=== PATIENT | male | born 1975 | race Caucasian/White ===

== ENCOUNTER 2024-01-02 11:53 | Emergency (ER) | payer BC, SELFPAY ==
[2024-01-02 11:58] VITALS: BP 150/120; PULSE 80; RESP 200; TEMP 36.7; O2SAT 98; BMI 26.7
--- NOTE | 2024-01-02 12:30 | CRLHL7_ITS ---
For Patients: As a result of the Century Cures Act, medical imaging exams and procedure reports are released immediately into your electronic medical record. You may view this report before your referring provider. If you have questions, please contact your health care provider. INDICATION: Pain, diarrhea, lower abdominal pain for 1 week. COMPARISON: Renal ultrasound 01/02/2015 TECHNIQUE: CT of the abdomen and pelvis with intravenous contrast. Multiplanar axial, coronal, and sagittal reformats were reconstructed. Contrast: 89 mL Isovue 370. FINDINGS: Lung bases: Normal. Liver: Normal. No mass. Gallbladder and bile ducts: Normal gallbladder. No bile duct dilation. Pancreas: Normal. Spleen: Normal. Adrenal glands: Normal. Kidneys: Horseshoe kidney. No parenchymal scarring or volume loss. No cyst or solid mass. No calculi. No urinary tract dilation. Urinary bladder: Barely filled but appears to have a thick and mildly irregular wall. Pelvis: No cyst or mass. Vessels: Normal. Bowel: There may be some very minimal wall thickening scattered throughout the colon. No adjacent inflammation. No pneumatosis. No mesenteric or portal venous gas. No abscess. No free air. Normal appendix. Mild stool burden. Lymph nodes: No adenopathy. Peritoneum: No ascites. Abdominal wall: No hernia. Bones: No fractures. No focal worrisome bone lesions. IMPRESSION: 1. Appearance of the urinary bladder is consistent with cystitis. 2. Very minimal colitis. No findings specific to inflammatory bowel disease. No ischemia. 3. Incidentally noted horseshoe kidney without complication. Please note that all CT scans at this facility use dose modulation, iterative reconstruction, and/or weight-based dosing when appropriate to reduce radiation dose to as low as reasonably achievable. Dictated by Janee Goodwin MD @ 01/02/2024 1:43:24 PM (Electronically Signed)
--- NOTE | 2024-01-02 12:32 | ED_ITS ---
HPI - Abdominal Pain General Chief Complaint: Abdominal Pain Stated Complaint: Stomach pains, SOB Time Seen by Provider: 01/02/24 12:10 History of Present Illness HPI narrative: This 48-year-old male comes in reporting abdominal pain with diarrhea. He states that he has had diarrhea for more than a year. He did have an upper endoscopy about a year and half ago that did show some ulcers. He states that he has had diarrhea on and off over the past urine half for so but this has beco me much more frequent with lower abdominal pain. He states that he has lost 10 or 15 lb in the last week or 2. He states that his diarrhea seems to come rather suddenly where he feels he needs to be near a restroom almost always. He does not report any fevers. He has not had any vomiting. He arrives here with normal vital signs. This patient states that he has been chewing tobacco since age 14 and knows that this is not good for his GI tract and his general health. Related Data Home Medications ?Medication ?Instructions ?Recorded ?Confirmed omeprazole 40 mg capsule,delayed 40 mg PO BID 01/02/24 01/02/24 release Previous Rx's ?Medication ?Instructions ?Recorded diphenoxylate-atropine 2.5 1 tab PO DAILY #15 tabs 01/02/24 mg-0.025 mg tablet (Lomotil) pantoprazole 20 mg tablet,delayed 40 mg (2 x 20 mg) PO DAILY #30 tabs 01/02/24 release (Protonix) Allergies Allergy/AdvReac Type Severity Reaction Status Date / Time No Known Drug Allergies Allergy Verified 01/02/24 11:57 Review of Systems Status of ROS Reports: 10 or more systems reviewed and unremarkable except as noted in History and below Narrative Constitutional: No fevers, no weight gain or loss. Eyes: No discharge. No vision changes. HENT: No congestion, no sore throat, no ear pain. Cardiovascular: No chest pain, no palpitations. Respiratory: No shortness of breath, no wheezes, no cough. Gastrointestinal: Abdominal pain and diarrhea as described above. Genitourinary: No dysuria, no hematuria. Musculoskeletal: Normal range of motion. Skin: No rashes, no pruritis. Neurological: No dizziness, weakness, sensory change, speech change. Endo/Heme/Allergies: No bruising or bleeding. No polydipsia. Pysch: no suicidality, no anxiety, no insomnia. All other systems reviewed and are negative. PFSH PFSH Social History Smoking Status: Never smoker Do you use any of these nicotine containing products: None How often do you have a drink containing alcohol: never How often do you have six or more drinks on one occasion: Never AUDIT-C Alcohol total score: 0 Non-prescribed substance use: denies use Exam Narrative: Exam Narrative: Constitutional: Well-developed, well-nourished, no acute distress. HEENT: Normocephalic, atraumatic. Neck: Normal range of motion. Nontender. Supple. Heart: Regular. No murmurs. Normal rate. Intact distal pulses. Lungs: Clear to auscultation. No chest discomfort. No wheezes, rhonchi, or rales. Abdomen: Normal bowel sounds. Diffuse tenderness in the lower abdomen. No rebound tenderness. Genitalia: Deferred. Back: No midline tenderness. Normal range of motion. Extremities: Normal range of motion. No injury. Skin: Intact. No rash. Warm. No erythema or pallor. Neurologic: No altered sensation. No weakness. Alert and oriented. Psychiatric: No suicidality. No anxiety or depression. No insomnia. Nursing notes and vitals signs are reviewed. Const: Vital Signs, click to edit/add: Vital Signs - 24 hr 01/02/24 11:58 01/02/24 14:15 Temperature 98.1 F Pulse Rate [Pulse Oximeter] 80 71 Respiratory Rate 200 H 18 Blood Pressure [Ri ght Upper Arm] 150/120 H 150/105 H Pulse Oximetry 98 98 Oxygen Delivery Me thod Room Air Room Air Course Vital Signs Vital signs: Initial Vital Signs Temperature 98.1 F 01/02/24 11:58 Temperature Source Temporal Artery Scan 01/02/24 11:58 Pulse Rate 80 01/02/24 11:58 Pulse Rhythm Regular 01/02/24 11:58 Respiratory Rate 200 H 01/02/24 11:58 Blood Pressure 150/120 H 01/02/24 11:58 Blood Pressure Mean 130 H 01/02/24 11:58 Blood Pressure Position Sitting 01/02/24 11:58 Pulse Oximetry 98 01/02/24 11:58 Oxygen Delivery Method Room Air 01/02/24 11:58 Vital Signs Temperature 98.1 F 01/02/24 11:58 Pulse Rate 80 01/02/24 11:58 Respiratory Rate 200 H 01/02/24 11:58 Blood Pressure 150/120 H 01/02/24 11:58 Pulse Oximetry 98 01/02/24 11:58 Oxygen Delivery Method Room Air 01/02/24 11:58 Temperature 98.1 F 01/02/24 11:58 Pulse Rate 71 01/02/24 14:15 Respiratory Rate 18 01/02/24 14:15 Blood Pressure 150/105 H 01/02/24 14:15 Pulse Oximetry 98 01/02/24 14:15 Oxygen Delivery Method Room Air 01/02/24 14:15 MDM - Abdominal Pain MDM Narrative Medical decision making narrative: This patient comes in reporting crampy abdominal pain and diarrhea. He arrives with normal vital signs. He states that he had a colonoscopy about 4 5 years ago with normal results and he had an upper GI scope about 18 months ago that did show evidence of some ulcerations. He is not currently taking a proton pump inhibitor. He does state that he is continuing to chew tobacco but plans to quit. An IV was established and labs are acquired. Labs returned with normal findings throughout. Additionally his urinalysis is normal. CT scan of the abdomen and pelvis also shows no findings to explain the patient's symptoms. He is okay to be discharged home. I advised him to follow up with the primary physician. He may eventually benefit from a senior bi developer. I did provide prescription for Protonix and some tablets of Lomotil. I encouraged him to use Imodium preferably for management of diarrhea. Lab Data Labs: Lab Results 01/02/24 01/02/24 Range/Units 12:40 14:41 WBC 7.22 (4.50-11.00) K/uL RBC 5.23 (4.30-5.90) m/uL Hgb 16.3 (13.5-17.5) gm/dL Hct 49.5 (37.0-53.0) % MCV 95 (80-100) fL MCH 31 (26-34) pg MCHC 33 (32-36) gm/dL RDW Coeff of Jeronimo 12.0 (11.5-15.5) % Plt Count 303 (140-440) K/uL Neut % (Auto) 62.1 (42.0-72.0) % Lymph % (Auto) 25.1 (20-44) % [place] % (Auto) 9.7 (0.0-11.0) % Eos % (Auto) 2.4 (0.0-7.0) % Baso % (Auto) 0.6 (0.0-3.0) % Neut # (Auto) 4.49 (1.7-7.0) K/uL Lymph # (Auto) 1.81 (0.90-2.90) K/uL [place] # (Auto) 0.70 (0.00-0.90) K/UL Eos # (Auto) 0.17 (0.00-0.50) K/uL Baso # (Auto) 0.04 (0.00-0.30) K/uL Abs Immat Gran (auto) 0.01 (0.00-0.30) K/uL Imm/Tot Granulo (auto) 0.1 % ESR 2 (2-15) mm/hr Sodium 137 (135-149) mmol/L Potassium 4.2 (3.6-5.1) mmol/L Chloride 103 (96-114) mmol/L Carbon Dioxide 28 (20-32) mmol/L Anion Gap 6 L (7-15) mEq/L BUN 14 (5-24) mg/dL Creatinine 0.9 (0.5-1.5) mg/dL Estimated Creat Clear 101.47 Estimated GFR 106 ml/min Glucose 99 (60-115) mg/dL Calcium 9.6 (8.4-10.6) mg/dL TSH 3.490 (0.270-4.20) uIU/mL Urine Color Yellow (Yellow) Urine Appearance Clear (Clear) Urine pH 7.5 (5.0-8.5) Ur Specific [place] 1.015 (1.000-1.030) Urine Protein Negative (Negative) Urine Glucose (UA) Negative (Negative) Urine Ketones Negative (Negative) Urine Blood Negative (Negative) Urine Nitrite Negative (Negative) Urine Bilirubin Negative (Negative) Urine Urobilinogen 0.2 (0.2-1.0) Ur Leukocyte Esterase Negative (Negative) Urine RBC 0-2 (0-2) Urine WBC 0-2 (0-5) Ur Squamous Epith Cells None (None-Few) Urine Bacteria None (None) Discharge Plan Discharge Clinical Impression: Diarrhea Patient Disposition: Home, Self-Care Condition: Stable Additional Instructions: Take medications as prescribed and needed. Follow-up with primary physician. Consider following up with Dr. Tao Feldman. Call [phone] for appointment. Return if worsening. Prescriptions: New diphenoxylate-atropine [Lomotil] 2.5-0.025 mg tablet 1 tab PO DAILY Qty: 15 0RF pantoprazole [Protonix] 20 mg tablet,delayed release (DR/EC) 40 mg PO DAILY Qty: 30 2RF No Action omeprazole 40 mg capsule,delayed release(DR/EC) 40 mg PO BID Follow Up/Referrals: Rodolfo Goldberg MD [Referring] - Stand Alone Forms: [employer] Info Instructions
[2024-01-02 12:56] LABS: Basophils Absolute Auto 0.04 K/uL (0.00-0.30); Basophils Percent Auto 0.6 % (0.0-3.0); Eosinophils Absolute Auto 0.17 K/uL (0.00-0.50); Eosinophils Percent Auto 2.4 % (0.0-7.0); Hematocrit 49.5 % (37.0-53.0); Hemoglobin* 16.3 gm/dL (13.5-17.5); Immature Granulocytes Abs Auto 0.01 K/uL (0.00-0.30); Immature Granulocytes Pct Auto 0.1 %; Lymphocytes Absolute Auto 1.81 K/uL (0.90-2.90); Lymphocytes Percent Auto 25.1 % (20-44); Mean Corpuscular HGB Conc 33 gm/dL (32-36); Mean Corpuscular Hemoglobin 31 pg (26-34); Mean Corpuscular Volume 95 fL (80-100); Monocytes Percent Auto 9.7 % (0.0-11.0); Neutrophils Absolute Auto 4.49 K/uL (1.7-7.0); Neutrophils Percent Auto 62.1 % (42.0-72.0); Platelet Count* 303 K/uL (140-440); Red Blood Count 5.23 m/uL (4.30-5.90); Slide Review Reflex No; White Blood Count* 7.22 K/uL (4.50-11.00)
[2024-01-02 13:07] LABS: Chloride* 103 mmol/L (96-114); Potassium* 4.2 mmol/L (3.6-5.1); Sodium* 137 mmol/L (135-149)
[2024-01-02 13:10] LABS: Anion Gap 6 mEq/L (7-15); Blood Urea Nitrogen* 14 mg/dL (5-24); Carbon Dioxide* 28 mmol/L (20-32); Creatinine* 0.9 mg/dL (0.5-1.5); Est. Creatinine Clearance* 101.47; Estimated Glomerular Filt Rate 106 ml/min
[2024-01-02 13:11] LABS: Calcium* 9.6 mg/dL (8.4-10.6); Glucose* 99 mg/dL (60-115)
[2024-01-02 13:46] LABS: Erythrocyte SedimentationRate* 2 mm/hr (2-15)
[2024-01-02 14:15] VITALS: BP 150/105; PULSE 71; RESP 18; O2SAT 98
[2024-01-02 14:46] LABS: Appearance Urine Clear (Clear); Bilirubin Urine Negative (Negative); Blood Urine Negative (Negative); Color Urine Yellow (Yellow); Glucose Urine Negative (Negative); Ketones Urine Negative (Negative); Leukocyte Esterase Urine Negative (Negative); Nitrite Urine Negative (Negative); Protein Urine Negative (Negative); Specific Gravity Urine 1.015 (1.000-1.030); Urobilinogen Urine 0.2 (0.2-1.0); pH Urine 7.5 (5.0-8.5)
[2024-01-02 14:59] LABS: RBC Urine 0-2 (0-2); WBC Urine 0-2 (0-5)
== END 2024-01-02 16:10 | disposition home or self-care (01) ==
PROVIDERS: Emergency Provider Emergency Medicine Emergency Medical Services
DX: R19.7 Diarrhea, unspecified (principal)
CPT/HCPCS: 36415; 74177; 80048; 81001; 84443; 85025; 85651; 99284; 99285; Q9967

== ENCOUNTER 2024-06-17 16:02 | Emergency (ER) | payer BC, SELFPAY ==
[2024-06-17] VITALS (11 sets, daily range): BP systolic 115–142; BP diastolic 92–106; PULSE 77–126; RESP 16–20; TEMP 37.1; O2SAT 92–99; BMI 25.8
--- NOTE | 2024-06-17 16:54 | ED_ITS ---
HPI - General Adult General Date Seen: 06/17/24 Chief complaint: Alcohol/Intoxication Stated complaint: abdominal pain, SOB Time Seen by Provider: 06/17/24 16:09 Source: patient Mode of arrival: ambulatory Limitations: no limitations History of Present Illness HPI narrative: Patient is a 48-year-old male presenting to emergency department for shortness of breath and upper abdominal pain. Having going on for the past week. States the upper abdominal pain has been intermittent for quite a while now but more persistent over the past week. States he feels like a pressure sensation in his upper abdominal region. Does state he has chronic lower abdominal pain to but that is not bothering him at this time. He states the shortness of breath feels like he has something in his chest. Denies any chest pain though. Denies lightheadedness, dizziness, diarrhea, constipation, nausea, vomiting, weakness, numbness. Is stating he feels fatigued. No history of blood clots. Has not noticed any lower extremity swelling. Denies hemoptysis. No history of cancer, hormone use, recent surgeries. Also notes he has been seeing scabs on his head and hands for the past several months is unsure what they are from. He has no history of IV drug use. Quit using marijuana gummies a year ago. Now states he drinks 4-10 alcoholic beverages almost every day. His last drink though he states was 4 days ago. Has not noticed any tremulousness, hallucinations. Related Data Home Medications ?Medication ?Instructions ?Recorded ?Confirmed No Known Home Medications 06/17/24 06/17/24 Allergies Allergy/AdvReac Type Severity Reaction Status Date / Time No Known Drug Allergies Allergy Verified 06/17/24 16:18 Review of Systems Status of ROS: Reports: 10 or more systems reviewed and unremarkable except as noted in History and below PFSH PFS Social History Smoking Status: Never smoker Do you use any of these nicotine containing products: None How often do you have a drink containing alcohol: never How often do you have six or more drinks on one occasion: Never AUDIT-C Alcohol total score: 0 Non-prescribed substance use: denies use Exam Narrative: Exam Narrative: Const: Well-nourished, Well-developed, in mild distress Eyes: PERRL, no conjunctival injection, and symmetrical lids HENT: Atraumatic external nose and ears. Moist mucous membranes. Neck: Symmetric, trachea midline, No thyromegaly. CVS: RRR, No murmurs or gallops. Peripheral pulses 2+ and equal in all extremities RESP: Unlabored respiratory effort. Clear to auscultation bilaterally. GI: Upper abdominal tenderness, Nondistended, No rebound or guarding. MSK:Extremities w/o deformity, Normal Active ROM Skin: Warm, Dry. Multiple scabs seen on bilateral dorsal hands Neuro: Normal Muscle tone, No focal neurological deficits. Psych: Awake, Alert, & Oriented x3. Appropriate mood and affect. Const: Vital Signs, click to edit/add: Vital Signs - 24 hr 06/17/24 16:18 06/17/24 16:58 06/17/24 17:00 Temperature 98.8 F Pulse Rate 92 90 Pulse Rate [Pulse Oximeter] 126 H Respiratory Rate 20 Blood Pressure Blood Pressure [Ri ght Upper Arm] 139/92 H Pulse Oximetry 99 93 93 Oxygen Delivery Me thod Room Air 06/17/24 17:02 06/17/24 17:15 06/17/24 18:14 Temperature Pulse Rate 88 88 91 Pulse Rate [Pulse Oximeter] Respiratory Rate 16 Blood Pressure 138/98 H 115/95 H Blood Pressure [Ri ght Upper Arm] Pulse Oximetry 92 94 98 Oxygen Delivery Me thod 06/17/24 18:30 06/17/24 18:45 06/17/24 19:00 Temperature Pulse Rate 79 77 84 Pulse Rate [Pulse Oximeter] Respiratory Rate Blood Pressure Blood Pressure [Ri ght Upper Arm] Pulse Oximetry 97 96 98 Oxygen Delivery Me thod Course Vital Signs Vital signs: Initial Vital Signs Temperature 98.8 F 06/17/24 16:18 Temperature Source Temporal Artery Scan 06/17/24 16:18 Pulse Rate 126 H 06/17/24 16:18 Respiratory Rate 20 06/17/24 16:18 Blood Pressure 139/92 H 06/17/24 16:18 Blood Pressure Mean 107 H 06/17/24 16:18 Blood Pressure Position Sitting 06/17/24 16:18 Pulse Oximetry 99 06/17/24 16:18 Oxygen Delivery Method Room Air 06/17/24 16:18 Vital Signs Temperature 98.8 F 06/17/24 16:18 Pulse Rate 126 H 06/17/24 16:18 Respiratory Rate 20 06/17/24 16:18 Blood Pressure 139/92 H 06/17/24 16:18 Pulse Oximetry 99 06/17/24 16:18 Oxygen Delivery Method Room Air 06/17/24 16:18 Temperature 98.8 F 06/17/24 16:18 Pulse Rate 84 06/17/24 19:00 Respiratory Rate 16 06/17/24 18:14 Blood Pressure 115/95 H 06/17/24 18:14 Pulse Oximetry 98 06/17/24 19:00 Oxygen Delivery Method Room Air 06/17/24 16:18 Medications Administered Medications: Discontinued Medications Generic Name Dose Route Start Last Admin Trade Name Freq PRN Reason Stop Dose Admin Sodium Chloride 1,000 mls @ 1,000 mls/hr 06/17/24 17:00 06/17/24 19:01 0.9 % Sodium Chloride 1000 Ml IV 06/17/24 17:59 Infused .Q1H FAHAD Infusion Medical Decision Making MDM Narrative Medical decision making narrative: Patient is a 48-year-old male presenting to emergency department for shortness of breath and upper abdominal pain. The differential diagnosis of shortness of breath is broad and includes common etiologies such as COPD, asthma, pneumonia, viral syndrome, etc. More serious etiologies considered include PE, CHF, coronary artery disease, pneumothorax, aortic dissection, aortic aneurysm. He is tachycardic and cannot be ruled out via the PERC score. Will order a D- dimer. Will also do a COVID/flu/RSV, CMP, CBC, BNP, lipase. Will also order an EKG and troponin to look for signs of ACS. L of fluid given for possible dehydration. Considering the location abdominal pain symptoms may be from repeat ulcers, gastroenteritis, pancreatitis, gallbladder liver disease. EKG reviewed by myself shows no concerning abnormalities. Troponin within normal limits. Considering how long symptoms have been going on a do not believe repeat troponin is necessary. D-dimer within normal limits. Will do a chest x-ray and CT scan of the abdomen and pelvis with IV contrast. Lipase is only slightly elevated and is not consistent with pancreatitis. Chest x-ray reviewed by myself and the radiologist shows no acute concerning abnormalities. CT scan of the abdomen pelvis also reviewed myself the radiologist shows no concerning abnormalities other than some possible cystitis. Will do urinalysis for better evaluation. Urinalysis shows no signs of UTI. His heart rate has now improved to 84. On my review vital signs are stable throughout time in in the emergency department. Oximetry stayed in the mid to high 90s. quality assurance monitor final showed no concerning arrhythmias. At this point I believe he is safe for discharge. I do not know exactly what is causing symptoms but I see no emergent issues. He is agreeable to this plan. I did give him information to follow up outpatient to set up primary care. Lab Data Labs: Lab Results 06/17/24 06/17/24 06/17/24 Range/Units 16:45 16:47 16:55 WBC 6.73 (4.50-11.00) K/uL RBC 5.12 (4.30-5.90) m/uL Hgb 15.8 (13.5-17.5) gm/dL Hct 46.8 (37.0-53.0) % MCV 91 (80-100) fL MCH 31 (26-34) pg MCHC 34 (32-36) gm/dL RDW Coeff of Jeronimo 11.7 (11.5-15.5) % Plt Count 304 (140-440) K/uL Neut % (Auto) 62.4 (42.0-72.0) % Lymph % (Auto) 25.1 (20-44) % [place] % (Auto) 10.3 (0.0-11.0) % Eos % (Auto) 1.5 (0.0-7.0) % Baso % (Auto) 0.6 (0.0-3.0) % Neut # (Auto) 4.20 (1.7-7.0) K/uL Lymph # (Auto) 1.69 (0.90-2.90) K/uL [place] # (Auto) 0.70 (0.00-0.90) K/UL Eos # (Auto) 0.10 (0.00-0.50) K/uL Baso # (Auto) 0.04 (0.00-0.30) K/uL Abs Immat Gran (auto) 0.01 (0.00-0.30) K/uL Imm/Tot Granulo (auto) 0.1 % D-Dimer Quant (PE/DVT) < 0.27 (0.00-0.50) ug/ml Sodium 135 (135-149) mmol/L Potassium 4.2 (3.6-5.1) mmol/L Chloride 102 (96-114) mmol/L Carbon Dioxide 25 (20-32) mmol/L Anion Gap 8 (7-15) mEq/L BUN 11 (5-24) mg/dL Creatinine 0.8 (0.5-1.5) mg/dL Estimated Creat Clear 114.15 Estimated GFR 110 ml/min Glucose 105 (60-115) mg/dL Calcium 9.4 (8.4-10.6) mg/dL Total Bilirubin 0.7 (0.1-1.5) mg/dL AST 53 H (12-35) U/L ALT 50 (4-50) U/L Alkaline Phosphatase 62 (40-150) U/L NT-Pro-B Natriuret Pep 36 pg/mL Total Protein 7.2 (6.0-8.3) g/dL Albumin 4.5 (3.3-5.0) g/dL Lipase 327 H (23-300) U/L Urine Color (Yellow) Urine Appearance (Clear) Urine pH (5.0-8.5) Ur Specific [place] (1.000-1.030) Urine Protein (Negative) Urine Glucose (UA) (Negative) Urine Ketones (Negative) Urine Blood (Negative) Urine Nitrite (Negative) Urine Bilirubin (Negative) Urine Urobilinogen (0.2-1.0) Ur Leukocyte Esterase (Negative) Urine RBC (0-2) Urine WBC (0-5) Ur Squamous Epith Cells (None-Few) Urine Bacteria (None) SARS-CoV-2 (PCR) Negative SARS-CoV-2 (Negative) Influenza Type A (PCR) Negative PCR FLU A (Negative) Influenza Type B (PCR) Negative PCR FLU B (Negative) RSV (PCR) Negative PCR RSV (Negative) POC Troponin I 0.00 L (0.01-0.04) ng/ml 06/17/24 Range/Units 19:15 WBC (4.50-11.00) K/uL RBC (4.30-5.90) m/uL Hgb (13.5-17.5) gm/dL Hct (37.0-53.0) % MCV (80-100) fL MCH (26-34) pg MCHC (32-36) gm/dL RDW Coeff of Jeronimo (11.5-15.5) % Plt Count (140-440) K/uL Neut % (Auto) (42.0-72.0) % Lymph % (Auto) (20-44) % [place] % (Auto) (0.0-11.0) % Eos % (Auto) (0.0-7.0) % Baso % (Auto) (0.0-3.0) % Neut # (Auto) (1.7-7.0) K/uL Lymph # (Auto) (0.90-2.90) K/uL [place] # (Auto) (0.00-0.90) K/UL Eos # (Auto) (0.00-0.50) K/uL Baso # (Auto) (0.00-0.30) K/uL Abs Immat Gran (auto) (0.00-0.30) K/uL Imm/Tot Granulo (auto) % D-Dimer Quant (PE/DVT) (0.00-0.50) ug/ml Sodium (135-149) mmol/L Potassium (3.6-5.1) mmol/L Chloride (96-114) mmol/L Carbon Dioxide (20-32) mmol/L Anion Gap (7-15) mEq/L BUN (5-24) mg/dL Creatinine (0.5-1.5) mg/dL Estimated Creat Clear Estimated GFR ml/min Glucose (60-115) mg/dL Calcium (8.4-10.6) mg/dL Total Bilirubin (0.1-1.5) mg/dL AST (12-35) U/L ALT (4-50) U/L Alkaline Phosphatase (40-150) U/L NT-Pro-B Natriuret Pep pg/mL Total Protein (6.0-8.3) g/dL Albumin (3.3-5.0) g/dL Lipase (23-300) U/L Urine Color Yellow (Yellow) Urine Appearance Clear (Clear) Urine pH 7.0 (5.0-8.5) Ur Specific [place] 1.015 (1.000-1.030) Urine Protein Negative (Negative) Urine Glucose (UA) Negative (Negative) Urine Ketones Negative (Negative) Urine Blood Negative (Negative) Urine Nitrite Negative (Negative) Urine Bilirubin Negative (Negative) Urine Urobilinogen 0.2 (0.2-1.0) Ur Leukocyte Esterase Negative (Negative) Urine RBC 0-2 (0-2) Urine WBC 0-2 (0-5) Ur Squamous Epith Cells Few (None-Few) Urine Bacteria None (None) SARS-CoV-2 (PCR) (Negative) Influenza Type A (PCR) (Negative) Influenza Type B (PCR) (Negative) RSV (PCR) (Negative) POC Troponin I (0.01-0.04) ng/ml Imaging Data Chest x-ray: Attestation: I have reviewed the pertinent imaging results. Radiologist's impression: No acute or significant findings. Dictated by Charli Tracy MD @ 06/17/2024 6:20:[address] scan abdomen pelvis: Attestation: I have reviewed the pertinent imaging results. Radiologist's impression: 1. Mild pericystic inflammation, may reflect cystitis. Recommend correlation with urinalysis. 2. Bowel is nonobstructed. Normal appendix. No hiatal hernia. Please note that all CT scans at this facility use dose modulation, iterative reconstruction, and/or weight-based dosing when appropriate to reduce radiation dose to as low as reasonably achievable. Dictated by Rosales Herrrea MD @ 06/17/2024 6:31:36 PM ECG Data Attestation: I personally reviewed and interpreted this ECG as follows: Prior ECG tracings: not available for review Interpretation: Normal sinus rhythm with rate 90 for beats per minute, normal intervals, normal axis, no ST or T-wave abnormalities Discharge Plan Discharge Clinical Impression: Shortness of breath Abdominal pain Qualifiers: Abdominal location: upper abdomen, unspecified Qualified Code(s): R10.10 - Up per abdominal pain, unspecified Patient Disposition: Home, Self-Care Condition: Stable Instructions: Abdominal Pain (ED) Additional Instructions: At this time I do not know exactly was causing his symptoms but I do not see any emergent issues. I gave you information to set up primary care through [facility]. A recommend setting this up as soon as she can. Return to emergency department for new or worsening symptoms. Prescriptions: No Action No Known Home Medications Follow Up/Referrals: Provider,Not a Local [Primary Care Provider] - Stand Alone Forms: [employer] Info Instructions
[2024-06-17 17:10] LABS: Basophils Absolute Auto 0.04 K/uL (0.00-0.30); Basophils Percent Auto 0.6 % (0.0-3.0); Eosinophils Percent Auto 1.5 % (0.0-7.0); Hematocrit 46.8 % (37.0-53.0); Hemoglobin* 15.8 gm/dL (13.5-17.5); Immature Granulocytes Abs Auto 0.01 K/uL (0.00-0.30); Immature Granulocytes Pct Auto 0.1 %; Lymphocytes Absolute Auto 1.69 K/uL (0.90-2.90); Lymphocytes Percent Auto 25.1 % (20-44); Mean Corpuscular HGB Conc 34 gm/dL (32-36); Mean Corpuscular Hemoglobin 31 pg (26-34); Mean Corpuscular Volume 91 fL (80-100); Monocytes Percent Auto 10.3 % (0.0-11.0); Neutrophils Percent Auto 62.4 % (42.0-72.0); Platelet Count* 304 K/uL (140-440); RDW Coefficient of Variation % 11.7 % (11.5-15.5); Red Blood Count 5.12 m/uL (4.30-5.90); White Blood Count* 6.73 K/uL (4.50-11.00)
[2024-06-17 17:18] LABS: Albumin* 4.5 g/dL (3.3-5.0); Chloride* 102 mmol/L (96-114); Potassium* 4.2 mmol/L (3.6-5.1); Slide Review Reflex No; Sodium* 135 mmol/L (135-149)
[2024-06-17 17:20] LABS: Anion Gap 8 mEq/L (7-15); Bilirubin Total* 0.7 mg/dL (0.1-1.5); Carbon Dioxide* 25 mmol/L (20-32); Creatinine* 0.8 mg/dL (0.5-1.5); Est. Creatinine Clearance* 114.15; Estimated Glomerular Filt Rate 110 ml/min
[2024-06-17 17:21] LABS: Alanine Aminotransferase* 50 U/L (4-50); Alkaline Phosphatase* 62 U/L (40-150); Aspartate Amino Transferase* 53 U/L (12-35); Blood Urea Nitrogen* 11 mg/dL (5-24); Calcium* 9.4 mg/dL (8.4-10.6); Glucose* 105 mg/dL (60-115); Lipase* 327 U/L (23-300); Total Protein* 7.2 g/dL (6.0-8.3)
--- OUTSIDE RECORDS SUMMARY | 2024-06-17 17:37 | XMS_ITS | Referral Summary ---
Author Organization [facility] Address [address] [place] [id number] Care Team Providers Care Clamp Forklift Operator Name Role Phone Clinic - Alessandra Wilson [facility] Primary Ca re Provider Clinic - Gita Womack [facility] Unavail able Encounters Date Type Department Care Team Description 06/15/2024 [facility] [place] Initial Department [facility] 06/15/2024 [facility] [place] Initial Department [facility] from Last 3 Months Allergies No known active allergies Medications MELATONIN PO Take by mouth nightly as needed Active levothyroxine (SYNTHROID/LEVO THROID) 25 MCG tabletIndicatio ns:Abnormal TSH Take 1 tablet (25 mcg) by mouth daily 60 tablet 08/05/2019 Active oxyCODONE (ROXICODONE) 5 MG tablet Take 1 tablet (5 mg) by mouth every 6 hours as needed for severe pain (7-10) 6 tablet 06/25/2022 Active carbamide peroxide (DEBROX) 6.5 % otic solutionIndicat ions:Otalgia, bilateral Place 5 drops into both ears 2 times daily 15 mL 08/19/2022 Active Active Problems No known active problems Immunizations Name Administration Dates Next Due Influenza Vaccine >6 months,quad, PF 03/29/2020 TDAP Vaccine (Adacel) 08/02/2019 Social History Tobacco Use Types Packs/Day Years Used Date Smoking Tobacco: Never Smokeless Tobacco: Current Chew Alcohol Use Standard Drinks/Week Comments Yes 0 (1 standard drink = 0.6 oz pur e alcohol) occ PHQ-2 Answer Date Recorded PHQ-2 Score 0 08/11/2018 Adolescent Education Answer Date Record ed Getting School Help Needed Not on file 02/28 Sex and Gender Information Value Date Recorded Sex Assigned at Not on file Legal Sex Male 4:18 AM SALES AND MERCHANDISING ASSOCIATE Gender Identity Not on file Sexual Orientation Not on file Last Filed Vital Signs Vital Sign Reading Time Taken Comments Blood Pressure 137/95 06/25/2022 10:00 AM SALES AND MERCHANDISING ASSOCIATE Pulse 66 06/25/2022 10:00 AM SALES AND MERCHANDISING ASSOCIATE Temperature 36.9 C (98.5 F) 06/25/2022 8:08 AM SALES AND MERCHANDISING ASSOCIATE Respiratory Rate 20 06/25/2022 10:00 AM SALES AND MERCHANDISING ASSOCIATE Oxygen Saturation 99% 06/25/2022 8:08 AM SALES AND MERCHANDISING ASSOCIATE Inhaled Oxygen Concentration - - Weight 84.1 kg (185 lb 5 oz) 03/29/2020 8:05 AM CDT Height 175.3 cm (5' 9.02) 08/03/2019 8:03 AM CS T Body Mass Index 27.35 08/03/2019 8:03 AM SALES AND MERCHANDISING ASSOCIATE Plan of Treatment Not on file Procedures Procedure Name Priority Date/Time Associated Diagnosis Comments OCCULT BLOOD STOOL STAT 06/25/2022 9: 51 AM SALES AND MERCHANDISING ASSOCIATE COMPREHENSIVE METABOLIC PANEL STAT 06/25/2022 9:40 AM SALES AND MERCHANDISING ASSOCIATE TSH WITH FREE T4 REFLEX Routine 03/29/2020 9:08 AM CDT Abnormal TSH COLONOSCOPY - HIM SCAN 0 12:00 AM CDT LIPID REFLEX TO DIRECT LDL PANEL Routine 12/18/2015 7:42 AM CDT Routine general medical examination at a health care facility from Last 3 Months or Most Recently Relevant to Health Maintenance Results * Stool: occult blood (06/25/2022 9:51 AM SALES AND MERCHANDISING ASSOCIATE) Occult Blood Negative Negative [facility] 06/25/2022 9:58 AM SALES AND MERCHANDISING ASSOCIATE [facility] Stool RECTAL CONTENTS / Unknown Non-blood Collection / Unknown 06/25/2022 9:51 AM SALES AND MERCHANDISING ASSOCIATE 06/25/2022 9:55 AM SALES AND MERCHANDISING ASSOCIATE Zandra Pringle DO LAB - STOOLS ORDERABLES Fi nal Result LABORATORY [facility] [address] Lab (1st floor, no room number) [place] [address], [facility] [phone] * Comprehensive metabolic panel (06/25/2022 9:[address] [facility]) Sodium 140 136 - 145 mmol/L 06/25/2022 10:18 AM [facility] Potassium 4.4 3.4 - 5.3 mmol/L 06/25/2022 10:18 AM [facility] Chloride 102 98 - 107 mmol/L 06/25/2022 10:18 AM [facility] Carbon Dioxide (CO2) 28 22 - 29 mmol/L 06/25/2022 10:18 AM [facility] Anion Gap 10 7 - 15 mmol/L 06/25/2022 10:18 AM [facility] Urea Nitrogen 7.0 6.0 - 20.0 mg/dL 06/25/2022 10:18 AM [facility] Creatinine 0.94 0.67 - 1.17 mg/dL 06/25/2022 10:18 AM [facility] Calcium 9.7 8.6 - 10.0 mg/dL 06/25/2022 10:18 AM [facility] Glucose 99 70 - 99 mg/dL 06/25/2022 10:18 AM [facility] Alkaline Phosphatase 49 40 - 129 U/L 06/25/2022 10:18 AM [facility] AST 19 10 - 50 U/L 06/25/2022 10:18 AM [facility] ALT 21 10 - 50 U/L 06/25/2022 10:18 AM [facility] Protein Total 7.3 6.4 - 8.3 g/dL 06/25/2022 10:18 AM [facility] Albumin 4.6 3.5 - 5.2 g/dL 06/25/2022 10:18 AM [facility] Bilirubin Total 0.4 <=1.2 mg/dL 06/25/2022 10:18 AM [facility] GFR Estimate >90 >60 mL/min/1.7 3m2 06/25/2022 10:18 AM [facility] Comment:Effective May 102020 eGFRcr in adults is calculated using the 2020 CKD-EPI creatinine equation which includes age and gender (Sugar et al., NEJM, DOI: 10.1056/YAQDbl9540253) Blood STRUCTURE OF RIGHT UPPER LIMB / Unknown Venipuncture / Unknown 06/25/2022 9:40 AM SALES AND MERCHANDISING ASSOCIATE 06/25/2022 9:45 AM SALES AND MERCHANDISING ASSOCIATE us Zandra Pringle DO LAB - BLOOD ORDERABLES Fin al Result [facility] Acute Care Lab [address] Lab (1st floor, no room number) [place] [address], [facility] [phone] * (ABNORMAL) TSH with free T4 reflex (03/29/2020 9:08 AM CDT) TSH 6.46(H) 0.40 - 4.00 mU/L 03/30/2020 8:34 AM CDT [facility] Blood specimen (specimen) 03/29/2020 9:08 AM CDT 03/29/2020 9:23 AM CDT Yesenia Martinez APRN STANDPIPE TENDER LAB - BLOOD ORDERABLES F inal Result Performing Organization Address [facility]/ZIP Co de Phone Number [facility] [address] [place] [address] * COLONOSCOPY - HIM SCAN (08/18/2019 12:00 AM CDT) 08/18/2019 Provider Outside PROCEDURES Final Result * (ABNORMAL) LIPID REFLEX TO DIRECT LDL PANEL (12/18/2015 7:42 AM CDT) Cholesterol 222(H) <200 mg/dL [facility] Comment:Desirable: <200 mg/d l Triglycerides 183(H) <150 mg/dL [facility] Comment: Borderline high: 150-199 mg/dl High: 200-499 mg/dl Very high: >499 mg/dl Fasting specimen HDL Cholesterol 48 >39 mg/dL [facility] LDL Cholesterol Calculated 137(H) <100 mg/dL [facility] Comment: Above desirable: 100-129 mg/dl Borderline High: 130-159 mg/dL High: 160-189 mg/dL Very high: >189 mg/dl Non HDL Cholesterol 174(H) <130 mg/dL [facility] Comment: Above Desirable: 130-159 mg/dl Borderline high: 160-189 mg/dl High: 190-219 mg/dl Very high: >219 mg/dl Blood specimen (specimen) 12/18/2015 7:42 AM CDT 12/18/2015 7:43 AM CDT us Morgan Davis MD LAB - BLOOD ORDERABLES Final Res ult Performing Organization Address City/State/[facility] Co de Phone Number [facility] [address] [place] [address] from Last 3 Months or Most Recently Relevant to Health Maintenance [place] BERENICE FELICIANO Care Teams Clamp Forklift Operator Relationship Specialty Start Date End Date Clinic - [facility] [address] [place] [address] PCP - General 06/25/22 Clinic - [facility] [address] [place], [place] [id number] Assigned PCP 07/03/23
--- OUTSIDE RECORDS SUMMARY | 2024-06-17 17:37 | XMS_ITS | Encounter Summary ---
Author Organization [facility] Address [address] [place] [address]. [place] [address] Care Team Providers Care Seed Laboratory Technician Name Role Phone [facility] Primary Ca re Provider Clinic - [facility] Unavail able Encounter Details Date Type Department Care Team (Late st Contact Info) Description 06/15/2024 [facility] Medical Advice Initial Department Shaq Crenshaw Social History Tobacco Use Types Packs/Day Years [...] on file Legal Sex Male 4:18 AM INTELLIGENCE CONSULTANT Gender Identity Not on file Sexual Orientation Not on file documented as of this encounter Plan of Treatment Not on file documented as of this encounter Visit Diagnoses Not on filedocumented in this encounter Care Teams Seed Laboratory Technician Relationship Specialty Start Date End Date [facility] [address] [place] [address] PCP - General 06/25/22 [facility] [address] [place] [address] Assigned PCP 07/03/23 documented as of this encounter
--- OUTSIDE RECORDS SUMMARY | 2024-06-17 17:37 | XMS_ITS | Encounter Summary ---
Author Organization [facility] Address [address] [place] [address] Care Team Providers Care Joint Runner Name Role Phone Pcp, Pt Declines MD Primary Care Provider Reason for Visit * Reason Comments Other PRESENTS TO URGENT C ARE FOR OVERALL NOT FEELING WELL. INCREASED SOB, ABNORMAL SKIN/UNKNOWN INJURIES/SCABS, UNINTENTIONAL WEIGHT LOSS AND INCREASED FATIGUE. HAS A HX OF STOMACH ULCERS. ALSO EXPERIENCING NAUSEA AND DECREASED APPETITE. NO RECENT PCP VISITS. WILL LIKE TO ESTABLISH CARE. Encounter Details Date Type Department Care Team (Late st Contact Info) Description 06/16/2024 5:20 PM CERTIFIED MEDICAL BILLER Office Visit [facility] [address] [address] John Barrett, DO [address] [place] [address] Abdominal pain, generalized (Primary Dx); Tachycardia; Shortness of breath Social History Tobacco Use Types Packs/Day Years Used Date Smoking Tobacco: Never Smokeless Tobacco: Current Chew Alcohol Use Standard Drinks/Week Comments Yes 0 (1 standard drink = 0.6 oz pur e alcohol) Sex and Gender Information Value Date Recorded Sex Assigned at Not on file Gender Identity Not on file Sexual Orientation Not on file documented as of this encounter Last Filed Vital Signs Vital Sign Reading Time Taken Comments Blood Pressure 141/108 06/16/2024 4:26 PM CERTIFIED MEDICAL BILLER INITAL BP 155/145 Pulse 122 06/16/2024 4:26 PM CERTIFIED MEDICAL BILLER Temperature 37.1 C (98.8 F) 06/16/2024 4:26 PM CERTIFIED MEDICAL BILLER Respiratory Rate 18 06/16/2024 4:26 PM CERTIFIED MEDICAL BILLER Oxygen Saturation 96% 06/16/2024 4:2 6 PM CERTIFIED MEDICAL BILLER Inhaled Oxygen Concentration - - Weight - - Height - - Body Mass Index - - documented in this encounter Patient Instructions * Patient Instructions* John Barrett DO - 06/16/2024 5:20 PM CERTIFIED MEDICAL BILLER Go to an emergency department for further tests and evaluation, follow up with a primary care doctor as soon as possible. IFIED MEDICAL BILLER documented in this encounter Progress Notes * John Barrett DO - 06/16/2024 5:20 PM CST Rooming Notes: Carl Lundy is a 48 y.o.male presents to the Urgent Care for Other (PRESENTS TO URGENT CARE FOR OVERALL NOT FEELING WELL. INCREASED SOB, ABNORMAL SKIN/UNKNOWN INJURIES/SCABS, UNINTENTIONAL WEIGHT LOSSAND INCREASED FATIGUE. HAS A HX OF STOMACH ULCERS. ALSO EXPERIENCING NAUSEA AND DECREASED APPETITE.NO RECENT PCP VISITS. WILL LIKE TO ESTABLISH CARE. ) . OVERALL PHYSICALLY NOT FEELING WELL ONGOING, symptoms gradually worsening. Pain present ABDOMEN . Previous episodes or similar occurrence HAS A HX OF STOMACH ULCERS. Any home remedies tried None. Patient requests an excuse letter for work/school: Yes Roxie Augustin 06/16/2024, 4:26 PM Subjective: HPI Carl Lundy is a 48 y.o. male in urgent care with multiple symptoms over the past few years, including abdominal pain, fatigue, shortness of breath, malaise, unexpected weight changes as well. He takes no medications regularly, he has been seen at outside ED he has for these issues, he had an upper and lower endoscopy at some point, he thinks that he was diagnosed with gastric ulcers. He chewstobacco, he drinks alcohol in excess, has not had any alcohol over the past 2 days, somewhat minimizes his withdrawal symptoms. No dark stool, no production to his cough, no chest pain, he takes NSAIDs often, he takes a PPI inconsistently. He has no primary care provider. Review of Systems Constitutional: Positive for appetite change and fatigue. Negative for fever. HENT: Negative. Eyes: Negative. Respiratory: Positive for cough and shortness of breath. Gastrointestinal: Positive for abdominal pain and nausea. Negative for vomiting. Genitourinary: Negative. Musculoskeletal: Positive for myalgias. Skin: Negative. Neurological: Positive for weakness. Psychiatric/Behavioral: Negative. Objective: Physical Exam Vitals and nursing note reviewed. Constitutional: General: He is not in acute distress. Appearance: Normal appearance. He is not toxic-appearing. Comments: Pleasant, conversational, no obvious distress. HENT: Mouth/Throat: Mouth: Mucous membranes are moist. Pharynx: No posterior oropharyngeal erythema. Eyes: General: No scleral icterus. Cardiovascular: Rate and Rhythm: Tachycardia present. Pulmonary: Effort: Pulmonary effort is normal. No respiratory distress. Breath sounds: Normal breath sounds. No stridor. No wheezing or rhonchi. Abdominal: Tenderness: There is abdominal tenderness. Comments: Soft, mild pain reproducible to palpation throughout, no localized pain palpable/reproducible Musculoskeletal: General: Normal range of motion. Right lower leg: No edema. Left lower leg: No edema. Skin: General: Skin is warm and dry. Neurological: Mental Status: He is alert and oriented to person, place, and time. Motor: No weakness. Coordination: Coordination normal. Gait: Gait normal. Assessment: Carl Lundy is a 48 y.o. male in urgent care with multiple symptoms over the past few years, more soover the past month or 2. He drinks alcohol in excess, he chews tobacco, he has been dealing with generalized abdominal pain for some time, he takes NSAIDs frequently, he has apparently been diagnosed with gastric ulcers in the past. He was seen at an outside ED 12 months ago, I did review that encounter, similar description of symptoms, he had a thorough workup at that time and [facility]. Ultimately, with his tachycardia, multiple symptoms, I believe that evaluation in the emergency department is warranted. I instructed him this, he seems motiva eli to go there now, I encouraged him to continue to abstain from alcohol gradually, not chew tobacco, lifestyle modifications encouraged at bedside. My suspicion for a time sensitive, ominous process is low, no indication for EMS transfer, he seemsmotivated at this point to be seen definitively. ICD-10-CM 1. Abdominal pain, generalized R10.84 2. Tachycardia R00.0 3. Shortness of breath R06.02 Plan: As above IFIED MEDICAL BILLER documented in this encounter Nursing Notes * Roxie Augustin - 06/16/2024 5:20 PM CST Carl Lundy is a 48 y.o.male presents to the Urgent Care for Other (PRESENTS TO URGENT CARE FOR OVERALL NOT FEELING WELL. INCREASED SOB, ABNORMAL SKIN/UNKNOWN INJURIES/SCABS, UNINTENTIONAL WEIGHT LOSSAND INCREASED FATIGUE. HAS A HX OF STOMACH ULCERS. ALSO EXPERIENCING NAUSEA AND DECREASED APPETITE.NO RECENT PCP VISITS. WILL LIKE TO ESTABLISH CARE. ) . OVERALL PHYSICALLY NOT FEELING WELL ONGOING, symptoms gradually worsening. Pain present ABDOMEN . Previous episodes or similar occurrence HAS A HX OF STOMACH ULCERS. Any home remedies tried None. Patient requests an excuse letter for work/school: Yes Roxie Augustin 06/16/2024, 4:26 PM IFIED MEDICAL BILLER documented in this encounter Plan of Treatment Not on file documented as of this encounter Visit Diagnoses Diagnosis Abdominal pain, generalized- Primary Tachycardia Tachycardia, unspecified Shortness of breath documented in this encounter Care Teams Joint Runner Relationship Specialty Start Date End Date Pcp, Pt MD [place], [place] [address] PCP - General 02/04/20 documented as of this encounter
--- OUTSIDE RECORDS SUMMARY | 2024-06-17 17:37 | XMS_ITS | Clinical Summary ---
Author Organization [place] Address [address] [place] [address] Care Team Providers Care Ocean Export Agent Name Role Phone Clinic - [facility] Primary Ca re Provider Clinic - [facility] Unavail able Allergies No known active allergies Medications MELATONIN [...] Active Active Problems No known active problems Encounters Date Type Department Care Team Description 06/15/2024 Agatha Medical Advice Initial Department Shaq Crenshaw 06/15/2024 MyC Medical Advice Initial Department Shaq Crenshaw from Last 3 Months Immunizations Name Administration Dates Next Due Influenza Vaccine >6 months,quad, PF 03/29/2020 TDAP Vaccine (Adacel) 08/02/2019 Family History Medical History Relation Comments Chronic Obstructive Pulmonary Disease Father asbestos expsoure Diabetes Type 2 Mother Relation Status Comments Father Mother Social History Tobacco Use Types Packs/Day Years [...] on file Legal Sex Male 4:18 AM WEATHERIZATION FIELD TECHNICIAN Gender Identity Not on file Sexual Orientation Not on file Last Filed Vital Signs Vital Sign Reading Time Taken Comments Blood Pressure 137/95 06/25/2022 10:00 AM WEATHERIZATION FIELD TECHNICIAN Pulse 66 06/25/2022 10:00 AM WEATHERIZATION FIELD TECHNICIAN Temperature 36.9 C (98.5 F) 06/25/2022 8:08 AM WEATHERIZATION FIELD TECHNICIAN Respiratory Rate 20 06/25/2022 10:00 AM WEATHERIZATION FIELD TECHNICIAN Oxygen Saturation 99% 06/25/2022 8:08 AM WEATHERIZATION FIELD TECHNICIAN Inhaled Oxygen Concentration - - Weight 84.1 kg (185 lb 5 oz) 03/29/2020 8:05 AM CDT Height 175.3 cm (5' 9.02) 08/03/2019 8:03 AM CS T Body Mass Index 27.35 08/03/2019 8:03 AM WEATHERIZATION FIELD TECHNICIAN Plan of Treatment Health Maintenance Due Date Last Done Comments ADVANCE CARE PLANNING 1976 CT COLONOGRAPHY 1976 FLEX SIG 1976 sDNA (Cologuard) 1976 HIV SCREENING 10/21/1991 HEPATITIS C SCREENING 1994 HEPATITIS B IMMUNIZATION (1 of 3 - 19+ 3-dose series) 10/21/1995 YEARLY PREVENTIVE VISIT 12/17/2016 12/18/2015 LIPID 12/17/2020 12/18/2015 ANNUAL REVIEW OF HM ORDERS 03/29/2021 03/29/2020 TSH W/FREE T4 REFLEX 03/29/2021 03/29/2020, 03/29/2020, 08/02/2019, Additional history exists FIT 06/25/2023 06/25/2022 COVID-19 Vaccine ( season) 2024 INFLUENZA VACCINE (#1) 2024 03/29/2020 PHQ-2 (once per calendar year) 2024 08/11/2018, 12/18/2015 GLUCOSE 06/25/2025 06/25/2022, 03/10, 12/14/2019, Additional history exists DTAP/TDAP/TD IMMUNIZATION (2 - Td or Tdap) 08/02/2029 08/02/2019 COLONOSCOPY 08/17/2029 08/18/2019 COLORECTAL CANCER SCREENING 08/17/2029 RSV VACCINE (1 - 1-dose 75+ series) 10/21/2051 HPV IMMUNIZATION Aged Out No longer e ligible based on patient's age to complete this topic MENINGITIS IMMUNIZATION Aged Out No l onger eligible based on patient's age to complete this topic Pneumococcal Vaccine: Pediatrics (0 to 5 Years) and At-Risk Patients (6 to 49 Years) Aged Out No longer eligible based on patient's age to complete this topic RSV MONOCLONAL ANTIBODY Aged Out No l onger eligible based on patient's age to complete this topic Procedures Procedure Name Priority Date/Time Associated Diagnosis Comments OCCULT BLOOD STOOL STAT 06/25/2022 9: 51 AM WEATHERIZATION FIELD TECHNICIAN COMPREHENSIVE METABOLIC PANEL STAT 06/25/2022 9:40 AM WEATHERIZATION FIELD TECHNICIAN TSH WITH FREE T4 REFLEX Routine 03/29/2020 9:08 AM CDT Abnormal TSH COLONOSCOPY - HIM SCAN 0 12:00 AM CDT LIPID REFLEX TO DIRECT LDL PANEL Routine 12/18/2015 7:42 AM CDT Routine general medical examination at a health care facility from Last 3 Months or Most Recently Relevant to Health Maintenance Results * Stool: occult blood (06/25/2022 9:51 AM WEATHERIZATION FIELD TECHNICIAN) Pathologist [facility] Occult Blood Negative Negative [facility] 06/25/2022 9:58 AM WEATHERIZATION FIELD TECHNICIAN LABORATORY Stool RECTAL CONTENTS / Unknown Non-blood Collection / Unknown 06/25/2022 9:51 AM WEATHERIZATION FIELD TECHNICIAN 06/25/2022 9:55 AM WEATHERIZATION FIELD TECHNICIAN Zandra Pringle DO LAB - STOOLS ORDERABLES Fi nal Result LABORATORY [facility] [address] [facility] Lab (1st floor, no room number) [place] [address] [phone] * Comprehensive metabolic panel (06/25/2022 9:40 AM [facility]) Sodium 140 136 - 145 mmol/L 06/25/2022 10:18 AM [facility] Potassium 4.4 3.4 - 5.3 mmol/L 06/25/2022 10:18 AM [facility] Chloride 102 98 - 107 mmol/L 06/25/2022 10:18 AM [facility] Carbon Dioxide (CO2) 28 22 - 29 mmol/L 06/25/2022 10:18 AM [facility] Anion Gap 10 7 - 15 mmol/L 06/25/2022 10:18 AM [facility] Urea Nitrogen 7.0 6.0 - 20.0 mg/dL 06/25/2022 10:18 AM [facility] Creatinine 0.94 0.67 - 1.17 mg/dL 06/25/2022 10:18 AM [facility] Calcium 9.7 8.6 - 10.0 mg/dL 06/25/2022 10:18 AM [facility] Glucose 99 70 - 99 mg/dL 06/25/2022 10:18 AM [facility] Alkaline Phosphatase 49 40 - 129 U/L 06/25/2022 10:18 AM [facility] AST 19 10 - 50 U/L 06/25/2022 10:18 AM [facility] ALT 21 10 - 50 U/L 06/25/2022 10:18 AM [facility] Protein Total 7.3 6.4 - 8.3 g/dL 06/25/2022 10:18 AM [facility] Albumin 4.6 3.5 - 5.2 g/dL 06/25/2022 10:18 AM [facility] Bilirubin Total 0.4 <=1.2 mg/dL 06/25/2022 10:18 AM [facility] GFR Estimate >90 >60 mL/min/1.7 3m2 06/25/2022 10:18 AM [facility] Comment:Effective May 102020 eGFRcr in adults is calculated using the 2020 CKD-EPI creatinine equation which includes age and gender (Sugar mccall al., NEJM, DOI: 10.1056/JPVAad6181935) Blood STRUCTURE OF RIGHT UPPER LIMB / Unknown Venipuncture / Unknown 06/25/2022 9:40 AM WEATHERIZATION FIELD TECHNICIAN 06/25/2022 9:45 AM WEATHERIZATION FIELD TECHNICIAN Zandra Whitney Yary DO LAB - BLOOD ORDERABLES Fin al Result [facility] Acute Care Lab [address] Lab (1st floor, no room number) [place] [address], [facility] [phone] * (ABNORMAL) TSH with free T4 reflex (03/29/2020 9:08 AM CDT) TSH 6.46(H) 0.40 - 4.00 mU/L 03/30/2020 8:34 AM CDT [facility] Blood specimen (specimen) 03/29/2020 9:08 AM CDT 03/29/2020 9:23 AM CDT Yesenia Martinez APRN SURGICAL SALES REPRESENTATIVE LAB - BLOOD ORDERABLES F inal Result Performing Organization Address City/[facility]/ZIP Co de Phone Number [facility] [address] [place] [address] * COLONOSCOPY - HIM SCAN (08/18/2019 12:00 AM CDT) 08/18/2019 Provider Outside PROCEDURES Final Result * (ABNORMAL) LIPID REFLEX TO DIRECT LDL PANEL (12/18/2015 7:42 AM CDT) Cholesterol 222(H) <200 mg/dL [facility] Comment:Desirable: <200 mg/d l Triglycerides 183(H) <150 mg/dL [facility] Comment: Borderline high: 150-199 mg/dl High: 200-499 mg/dl Very high: >499 mg/dl Fasting specimen HDL Cholesterol 48 >39 mg/dL [facility] LDL Cholesterol Calculated 137(H) <100 mg/dL [facility] Comment: Above desirable: 100-129 mg/dl Borderline High: 130-159 mg/dL High: 160-189 mg/dL Very high: >189 mg/dl Non HDL Cholesterol 174(H) <130 mg/dL [facility] Comment: Above Desirable: 130-159 mg/dl Borderline high: 160-189 mg/dl High: 190-219 mg/dl Very high: >219 mg/dl Blood specimen (specimen) 12/18/2015 7:42 AM CDT 12/18/2015 7:43 AM CDT us Morgan Davis MD LAB - BLOOD ORDERABLES Final Res ult [facility] [address] [place] [address] from Last 3 Months or Most Recently Relevant to Health Maintenance [place] BERENICE FELICIANO Care Teams Ocean Export Agent Relationship Specialty Start Date End Date Clinic - [facility] [address] [id number] PCP - General 06/25/22 Clinic - [facility] [address] [place] [address] Assigned PCP 07/03/23
--- OUTSIDE RECORDS SUMMARY | 2024-06-17 17:37 | XMS_ITS | Encounter Summary ---
Author Organization [place] Address [address] [place] [address]. [place] [address] Care Team Providers Care Bone Crusher Name Role Phone [facility] Primary Ca re Provider Clinic - [facility] Unavail able Encounter Details [...] on file Legal Sex Male 4:18 AM SAMPLER TESTER Gender Identity Not on file Sexual Orientation Not on file documented as of this encounter Plan of Treatment Not on file documented as of this encounter Visit Diagnoses Not on filedocumented in this encounter Care Teams Bone Crusher Relationship Specialty Start Date End Date [facility] [address] [place] [address] PCP - General 06/25/22 [facility] [address] [place] [address] Assigned PCP 07/03/23 documented as of this encounter
--- OUTSIDE RECORDS SUMMARY | 2024-06-17 17:37 | XMS_ITS | Encounter Summary ---
Author Organization [place] Address [address] [place] [address] Care Team Providers Care Superintendent Building Name Role Phone Betty Aragon MD Primary Care Provider Shantel Horowitz APRN TRAFFIC CONTROL SPECIALIST Unavailable [phone] Wilton Barrett PA-C Unavailable [phone] Yesenia Martinez APRN TRAFFIC CONTROL SPECIALIST Unavailable [phone] Marilyn Merrill APRN TRAFFIC CONTROL SPECIALIST Unavailable Unavailable [facility] Primary Ca re Provider Yesenia Martinez APRN TRAFFIC CONTROL SPECIALIST Unavailable [phone] Clinic - [facility] Unavail able Encounter Details Date Type Department Care Team (Late st Contact Info) Description 08/06/2019 MyC Medical Advice [facility] [address] [place] [address] Elayne Birmingham APRN TRAFFIC CONTROL SPECIALIST [address] [place], [place] [id number] Social History Tobacco Use Types Packs/Day Years Used Date Smoking Tobacco: Never Smokeless Tobacco: Current Chew Alcohol Use Standard Drinks/Week Comments Yes 0 (1 standard drink = 0.6 oz pur e alcohol) occ PHQ-2 Answer Date Recorded PHQ-2 Score 0 08/11/2018 Sex and Gender Information Value Date Recorded Sex Assigned at Not on file 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 Gender Identity Not on file Sexual Orientation Not on file documented as of this encounter Plan of Treatment Not on file documented as of this encounter Visit Diagnoses Not on filedocumented in this encounter Additional Health Concerns Infection Onset Date Last Indicated Resolved Time Rule Out COVID-19 12/14/2019 12/14/2019 12/15/2019 5:43 PM CDT documented as of this encounter Care Teams Superintendent Building Relationship Specialty Start Date End Date Betty Aragon MD PCP - General Family Practice 12/18/15 06/24/22 [facility] [address] [id number] PCP - General 06/25/22 Shantel Horowitz APRN TRAFFIC CONTROL SPECIALIST [address] [address] Assigned PCP 08/23/18 08/07/19 Wilton Barrett PA-C [address] [address] Assigned PCP 08/08/19 04/08/20 Yesenia Martinez APRN TRAFFIC CONTROL SPECIALIST [address] [place] [address] Assigned PCP 04/09/20 05/24/22 Marilyn Merrill APRN TRAFFIC CONTROL SPECIALIST Assigned Sleep Provider 11/19/20 02/03/21 Yesenia Martinez APRN TRAFFIC CONTROL SPECIALIST [address] [address] Assigned PCP 08/03/22 04/04/23 Clinic [facility] [address] [place] [address] Assigned PCP 07/03/23 documented as of this encounter
--- OUTSIDE RECORDS SUMMARY | 2024-06-17 17:37 | XMS_ITS | Encounter Summary ---
Author Organization [employer] Address [address] [place] [address] Care Team Providers Care Manager Pe Name Role Phone Betty Aragon MD Primary Care Provider Wilton Barrett PA-C Unavailable [phone] Yesenia Martinez APRN BELL STAFF Unavailable [phone] Marilyn Merrill APRN BELL STAFF Unavailable Unavailable [facility] Primary Ca re Provider Yesenia Martinez APRN BELL STAFF Unavailable [phone] Clinic - [facility] Unavail able Encounter Details Date Type Department Care Team (Late st Contact Info) Description 01/21/2020 MyC Medical Advice [facility] [address] [address] Jana Mcgill MA Social History Tobacco Use Types Packs/Day Years Used Date Smoking Tobacco: Never Smokeless Tobacco: Current Chew Alcohol Use Standard Drinks/Week Comments Yes 0 (1 standard drink = 0.6 oz pur e alcohol) occ PHQ-2 Answer Date Recorded PHQ-2 Score 0 08/11/2018 Sex and Gender Information Value Date Recorded Sex Assigned at Not on file 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 Unable to assess 01/10/2020 7:21 AM CDT documented as of this encounter Plan of Treatment Not on file documented as of this encounter Visit Diagnoses Not on filedocumented in this encounter Care Teams Manager Pe Relationship Specialty Start Date End Date Betty Aragon MD PCP - General Family Practice 12/18/15 06/24/22 [facility] [address] [place] [address] PCP - General 06/25/22 Wilton Barrett PA-C [address] [address] Assigned PCP 08/08/19 04/08/20 Yesenia Martinez APRN BELL STAFF [address] [place] [address] Assigned PCP 04/09/20 05/24/22 Marilyn Merrill APRN BELL STAFF Assigned Sleep Provider 11/19/20 02/03/21 Yesenia Martinez APRN BELL STAFF [address] [address] Assigned PCP 08/03/22 04/04/23 Clinic - [facility] [address] [place] [address] Assigned PCP 07/03/23 documented as of this encounter
--- OUTSIDE RECORDS SUMMARY | 2024-06-17 17:37 | XMS_ITS | Clinical Summary ---
Author Organization [facility] Address [address], [place] [address] Care Team Providers Care Courier Driver Name Role Phone Pcp, Pt Declines Primary Care Provider [phone] Source Comments You are receiving this document as you are listed as the primary care provider,follow-up provider, or the patient has been referred to you for consultation.This is in compliance with the Medicare and[facility] EHR Incentive Program,which states Providers who transition their patient to another setting of careor provider of care or refers their patient to another provider of care shouldprovide summary care record for each transition of care or referral. [facility] Allergies No known active allergies Medications Medication Sig Dispensed Refills Start Date End Date Status levothyroxine (SYNTHROID) 25 MCG tablet Take 25 mcg by mouth. 08/05/2019 Active Active Problems No known active problems Encounters Date Type Department Care Team Description 06/16/2024 5:20 PM PIPEFITTER Office Visit [facility] [address] [address] John Barrett, Abdominal pain, generalized (Primary Dx); Tachycardia; Shortness of breath from Last 3 Months Social History Tobacco Use Types Packs/Day Years [...] Comments Blood Pressure 141/108 06/16/2024 4:26 PM PIPEFITTER INITAL BP 155/145 Pulse 122 06/16/2024 4:26 PM PIPEFITTER Temperature 37.1 C (98.8 F) 06/16/2024 4:26 PM PIPEFITTER Respiratory Rate 18 06/16/2024 4:26 PM PIPEFITTER Oxygen Saturation 96% 06/16/2024 4:2 6 PM PIPEFITTER Inhaled Oxygen Concentration - - Weight 83.9 kg (185 lb) 04/04/2020 6:15 AM CDT Height 177.8 cm (5' 10) 04/04/2020 6:1 5 AM CDT Body Mass Index 26.54 04/04/2020 6:15 AM CDT Plan of Treatment Health Maintenance Due Date Last Done Comments Colon Cancer Screening Plan Due 1976 Hep C Screening (Preventive Services) 1976 HIV Screening (Preventive Services) 1992 Adult Preventive Visit 1994 HepB (1) 10/21/1995 Cholesterol 10/21/2011 COVID-19 Vaccine ( - 2023-2 5 season) 2024 Influenza (#1) 2024 03/29/2020 Zoster/Shingles (1 of 2) 2026 DTaP/Tdap/Td (2 - Tdap) 08/02/2029 08/02/2019 HepA Aged Out No longer eligi ble based on patient's age to complete this topic Hib Aged Out No longer eligi ble based on patient's age to complete this topic IPV (Polio) Aged Out No longer eligi ble based on patient's age to complete this topic MCV4 Aged Out No longer eligi ble based on patient's age to complete this topic Pneumococcal Aged Out No longer eligi ble based on patient's age to complete this topic Medical Devices Implanted Type Area Filter Tank Tender Helper Head Device Identifier Shelf Expiration Date Model / Serial / Lot Scr Biotendesis Swivelock - [id number] Implanted:Qty: 1 on 04/04/2020 by Yo Arzate MD at [employer] Right: SHOULDER [employer] 11/07/2023 AR-[id number] / 0 / [id number] Sut Garibaldi Corkscrew Ft 5.5mm - [id number] Implanted:Qty: 1 on 04/04/2020 by Yo Arzate MD at [employer] Right: SHOULDER [employer] 01/06/2022 AR-1927BCT / 0 / [id number] Sut Garibaldi Corkscrew Ft 5.5mm - [id number] Implanted:Qty: 1 on 04/04/2020 by Yo Arzate MD at [employer] Right: SHOULDER [employer] 12/06/2021 AR-1927BCT / 0 / [id number] Sut Garibaldi Corkscrew Ft 5.5mm - [id number] Implanted:Qty: 1 on 04/04/2020 by Yo Arzate MD at [employer] Right: SHOULDER [employer] 01/06/2022 AR-1927BCT / 0 / [id number] Sut Garibaldi Corkscrew 5.5mm W2# - [id number] Implanted:Qty: 1 on 04/04/2020 by Yo Arzate MD at [employer] Right: SHOULDER [employer] 01/07/2024 AR-1927BCF T / 0 / [id number] Anch Sut Bioswlk C 4.75x19.1 - [id number] Implanted:Qty: 1 on 04/04/2020 by Yo Arzate MD at [employer] Right: SHOULDER [employer] 08/07/2023 AR-2324BSL C / 0 / [id number] Garibaldi Bio Swivel Lk 5.5x19.1 - [id number] Implanted:Qty: 1 on 04/04/2020 by Yo Arzate MD at [employer] Right: SHOULDER [employer] 08/07/2023 AR-2323BSL C / 0 / [id number] Care Teams Courier Driver Relationship Specialty Start Date End Date Pcp, [place] [address] PCP - General 02/04/20
[2024-06-17 17:38] LABS: PCR FLU A Negative PCR FLU A (Negative); PCR FLU B Negative PCR FLU B (Negative); PCR RSV Negative PCR RSV (Negative); SARS PCR* Negative SARS-CoV-2 (Negative)
[2024-06-17 17:39] LABS: D Dimer Quantitative* < 0.27 ug/ml (0.00-0.50)
[2024-06-17] MEDS: 0.9 % SODIUM CHLORIDE 1000 ml 1,000 ML IV (17:40)
--- NOTE | 2024-06-17 17:48 | CRLHL7_ITS ---
For Patients: As a result of the Century Cures Act, medical imaging exams and procedure reports are released immediately into your electronic medical record. You may view this report before your referring provider. If you have questions, please contact your health care provider. INDICATION: Upper abdominal pain. TECHNIQUE: CT abdomen and pelvis acquired with 85 mL Isovue 370 contrast. COMPARISON: CT abdomen/pelvis dated 01/02/2024. FINDINGS: Lower chest: No focal consolidation. Liver: No suspicious focal hepatic lesion. Gallbladder and bile ducts: Unremarkable. Pancreas: Unremarkable. Spleen: Unremarkable. Adrenal glands: Unremarkable. Kidneys: Horseshoe kidney. No hydronephrosis of the bilateral renal moieties. Retroperitoneum: No lymphadenopathy. Bowel and mesentery: Bowel is not obstructed. No significant ascites, no pneumoperitoneum. Normal appendix. No hiatal hernia. Bladder: Mild pericystic inflammation. Reproductive organs: No prostatomegaly. Pelvic lymph nodes: No lymphadenopathy. Vessels: Unremarkable. Abdominal wall: No acute abdominal wall abnormality. Bones: Multilevel degenerative changes of the spine. No suspicious/aggressive focal osseous lesion. IMPRESSION: 1. Mild pericystic inflammation, may reflect cystitis. Recommend correlation with urinalysis. 2. Bowel is nonobstructed. Normal appendix. No hiatal hernia. Please note that all CT scans at this facility use dose modulation, iterative reconstruction, and/or weight-based dosing when appropriate to reduce radiation dose to as low as reasonably achievable. Dictated by Rosales Herrera MD @ 06/17/2024 6:31:36 PM (Electronically Signed)
--- NOTE | 2024-06-17 17:48 | CRLHL7_ITS ---
For Patients: As a result of the Cures Act, medical imaging exams and procedure reports are released immediately into your electronic medical record. You may view this report before your referring provider. If you have questions, please contact your health care provider. INDICATION: Shortness of breath. TECHNIQUE: Chest 2 views. COMPARISON: None. FINDINGS: Cardiovascular and mediastinum: Heart size and vasculature are normal in caliber and appearance. Lungs and pleural spaces: Lungs are clear. No sign of infiltrate or mass. No sign of pleural effusion. No pneumothorax. Bones and soft tissues: No significant findings. IMPRESSION: No acute or significant findings. Dictated by Charli Tracy MD @ 06/17/2024 6:20:16 PM (Electronically Signed)
[2024-06-17 18:33] LABS: NT Pro B Type NatriureticPept* 36 pg/mL
[2024-06-17 19:21] LABS: Appearance Urine Clear (Clear); Bilirubin Urine Negative (Negative); Blood Urine Negative (Negative); Color Urine Yellow (Yellow); Glucose Urine Negative (Negative); Ketones Urine Negative (Negative); Leukocyte Esterase Urine Negative (Negative); Nitrite Urine Negative (Negative); Protein Urine Negative (Negative); Specific Gravity Urine 1.015 (1.000-1.030); Urobilinogen Urine 0.2 (0.2-1.0)
[2024-06-17 19:37] LABS: RBC Urine 0-2 (0-2); Squamous Epithelial Cell Urine Few (None-Few); WBC Urine 0-2 (0-5)
== END 2024-06-17 19:51 | disposition home or self-care (01) ==
PROVIDERS: Emergency Provider Student in an Organized Health Care Education/Training Program
DX: R06.02 Shortness of breath (principal); R10.10 Upper abdominal pain, unspecified
CPT/HCPCS: 36415; 71046; 74177; 80053; 81001; 83690; 83880; 84484; 85025; 85379; 87631; 93005; 99284; 99285; J7030; Q9967